=== PATIENT | female | born 1990 | race Caucasian/White ===

== ENCOUNTER → 2018-08-18 | Outpatient (CLI) | payer OTHER | LOC: M LRY 09:30 | DX: Z53.9 Procedure and treatment not carried out, unspecified reason (principal) ==

== ENCOUNTER → 2018-08-18 | Outpatient (CLI) | payer OTHER | LOC: M LRY 10:08 | DX: R10.10 Upper abdominal pain, unspecified (principal); Z97.5 Presence of (intrauterine) contraceptive device | CPT/HCPCS: 74021 ==